=== PATIENT | male | born 1990 | race Caucasian/White ===

== ENCOUNTER 2017-03-23 20:07 | Emergency (ER) | payer SELFPAY ==
[2017-03-23 20:28] VITALS: BP 110/72; PULSE 77; TEMP 98.5; BMI 25.4
--- NOTE | 2017-03-23 20:32 | PDOC ---
Rapid Medical Evaluation Chief Complaint: Rash Time Seen by Provider: 03/23/17 20:19 Medical Evaluation: Allergies Allergy/AdvReac Type Severity Reaction Status Date / Time No Known Allergies Allergy Verified 03/23/17 20:21 Vital Signs Temp Pulse Resp BP Pulse Ox 98.5 F 77 20 110/72 03/23/17 20:21 03/23/17 20:21 03/23/17 20:21 03/23/17 20:21 03/23/17 20:30 Pt with c/o: itchy rash worsening since 3 am . had ppd placed 10 days ago Pt on brief exam: large wheals to body. oropharynx intact, no stridor / wheezing Pt ordered for: none Pt to proceed to the ED Discharge Disposition - Diagnosis Rash - Referrals - Patient Instructions - Post Discharge Activity
[2017-03-23] MEDS ORDERED: predniSONE 20 MG TABLET (UD) PO ONE (22:02)
--- NOTE | 2017-03-23 22:02 | PDOC ---
History of Present Illness - General Chief Complaint: Rash Stated Complaint: RASH Time Seen by Provider: 03/23/17 20:19 History Source: Patient Exam Limitations: No Limitations - History of Present Illness Initial Comments: 03/23/17 21:58 The 26-year-old male without significant past medical history of presents to emergency department today with generalized raised take wheels covering trunk and extending into arms and legs. Denies any change in medications, foods, soaps , shampoos, conditioner's, lotions, shaving creams, colognes, laundry detergent , fabric softener. He denies fevers, chills, shortness of breath, chest pain, nausea, vomiting, dizziness. Past History - Past Medical History Allergies/Adverse Reactions: Allergies Allergy/AdvReac Type Severity Reaction Status Date / Time No Known Allergies Allergy Verified 03/23/17 20:21 Home Medications: Ambulatory Orders No Home Medications 0 dose .ROUTE UTDICT 02/21/12 Prednisone [Deltasone -] 40 mg PO UTDICT #8 tablet 03/23/17 Anemia: No Asthma: No Cancer: No Cardiac Disorders: No - Surgical History Abdominal Surgery: No Appendectomy: No Cardiac Surgery: No Cholecystectomy: No - Immunization History Td Vaccination: (unknown) Immunization Up to Date: Yes - Suicide/Smoking/Psychosocial Hx Smoking Status: No Smoking History: Never smoked Years of Tobacco Use: 0 Number of Cigarettes Smoked Daily: 0 Cigars Per Day: 0 Information on smoking cessation initiated: No Hx Alcohol Use: No Drug/Substance Use Hx: No Substance Use Type: None Review of Systems - Review of Systems Able to Perform ROS?: Yes Is the patient limited Kyrgyz proficient: No Constitutional: No: Symptoms Reported HEENTM: No: Symptoms Reported Respiratory: No: Symptoms reported Cardiac (ROS): No: Symptoms Reported ABD/GI: No: Symptoms Reported : No: Symptoms Reported Musculoskeletal: No: Symptoms Reported Integumentary: Yes: See HPI Neurological: No: Symptoms reported *Physical Exam - Vital Signs Last Vital Signs Temp Pulse Resp BP Pulse Ox 98.5 F 77 20 110/72 03/23/17 20:21 03/23/17 20:21 03/23/17 20:21 03/23/17 20:21 - Physical Exam General Appearance: Yes: Appropriately Dressed. No: Apparent Distress Neck: negative: Stridor Respiratory/Chest: positive: Lungs Clear, Normal Breath Sounds. negative: Respiratory Distress, Accessory Muscle Use Cardiovascular: positive: Regular Rhythm, Regular Rate Integumentary: positive: Rash (raised pink rash to trunk) Neurologic: positive: Alert, Normal Response, Motor Strength 5/5 Medical Decision Making - Medical Decision Making 03/23/17 21:59 A/P: 26-year-old male with pancreas rash to trunk and upper extremities. Patient states rash is improving after taking Benadryl and hydrocortisone cream. Lungs clear to auscultation bilaterally. Respirations even and unlabored. No stridor noted. Prednisone 60 mg orally now Discharge *DC/Admit/Observation/Transfer Diagnosis at time of Disposition: Rash - Discharge Dispostion Disposition: HOME Condition at time of disposition: Stable Admit: No - Prescriptions Prescriptions: Prednisone [Deltasone -] 40 mg PO UTDICT #8 tablet - Referrals - Patient Instructions Additional Instructions: Take Benadryl 40 mg daily for the next 4 days. Use hydrocortisone cream 3 times a day to affected areas. Take Benadryl 25 mg every 6 hours as needed for itching. Return to emergency department for shortness of breath, difficulty breathing, change in voice, drooling or any other concerns. Thank you very much for choosing us to provide your emergent healthcare needs. - Post Discharge Activity
[2017-03-23] MEDS ORDERED: predniSONE 20 MG TABLET (UD) ONE (22:06)
== END 2017-03-23 22:32 | disposition home or self-care (01) ==
LOC: JERFT 20:07
DX: R21 Rash and other nonspecific skin eruption (principal)
CPT/HCPCS: 99281-25

== ENCOUNTER 2019-11-14 15:20 | Emergency (ER) | payer OTHER ==
[2019-11-14 15:25] VITALS: BP 127/70; PULSE 73; TEMP 98.3; BMI 26.4
--- NOTE | 2019-11-14 15:28 | PDOC ---
Rapid Medical Evaluation Chief Complaint: Injury Medical Evaluation: Allergies Allergy/AdvReac Type Severity Reaction Status Date / Time No Known Allergies Allergy Verified 11/14/19 15:22 11/14/19 15:24 29 yo M denies pmhx c/o L foot and ankle pain after jumping off fire truck (approx 3 feet from the ground) today. denies striking the ground, head injury, neck pain, cp, back pain or any other complaints. denies taking pain meds today. PE: wearing ankle top boots ambulating A/P: L foot and ankle pain L foot and ankle xray Discharge Disposition - Diagnosis Pain, joint, ankle and foot Qualifiers: Laterality: left Qualified Code(s): M25.572 - Pain in left ankle and joints of left foot - Discharge Dispostion Disposition: HOME - Referrals - Patient Instructions - Post Discharge Activity
[2019-11-14] MEDS ORDERED: IBUPROFEN 600 MG TABLET (FP) PO ONE ×2 (15:57→15:58)
--- NOTE | 2019-11-14 15:58 | PDOC ---
History of Present Illness - General Chief Complaint: Injury Stated Complaint: LT. LEG PAIN Time Seen by Provider: 11/14/19 15:27 History Source: Patient Exam Limitations: No Limitations - History of Present Illness Initial Comments: 11/14/19 15:56 Patient is a 29-year-old male who presents to the ED with left heel pain after jumping off a fire truck and landing awkwardly on his left heel. 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 He states that he has been walking on the foot but he has pain to his left heel. He denies any numbness or tingling. He denies any weakness. He denies hitting his head or any LOC. He has no past medical history or allergies to medications. Past History - Medical History Allergies/Adverse Reactions: Allergies Allergy/AdvReac Type Severity Reaction Status Date / Time No Known Allergies Allergy Verified 11/14/19 15:22 Home Medications: Ambulatory Orders No Home Medications 0 dose .ROUTE UTDICT 02/21/12 predniSONE [Deltasone -] 40 mg PO UTDICT #8 tablet 03/23/17 Anemia: No Asthma: No Cancer: No Cardiac Disorders: No - Surgical History Abdominal Surgery: No Appendectomy: No Cardiac Surgery: No Cholecystectomy: No - Immunization History Td Vaccination: (unknown) Immunization Up to Date: Yes - Psycho-Social/Smoking History Smoking Status: No Smoking History: Never smoked Years of Tobacco Use: 0 Number of Cigarettes Smoked Daily: 0 Cigars Per Day: 0 - Substance Abuse Hx (Audit-C & DAST Scrn) How often the patient has a drink containing alcohol: Monthly or less Score: In Men: 4 or > Positive; In Women: 3 or > Positive: 1 Screen Result (Pos requires Nsg. Audit-10AR): Negative In the last yr the pt used illegal drug/Rx for NonMed reason: No Score: Yes response is considered Positive: 0 Screen Result (Positive result requires Nsg. DAST-10): Negative Review of Systems - Review of Systems Comments:: 11/14/19 16:00 - Review of Systems Able to Perform ROS?: Yes Constitutional: No: Fever, Chills, Loss of Appetite, Night Sweats, Weakness HEENTM: No: Eye Pain, Vision changes, Ear Pain, Throat Pain, Throat Swelling, Mouth Pain, Difficulty Swallowing Respiratory: No: Cough, Shortness of Breath, Wheezing, Sputum Production Cardiac (ROS): No: Chest Pain, Chest Tightness, Palpitations, Irregular Heart Beat, Edema ABD/GI: No: Nausea, Vomiting, Abdominal Pain, Diarrhea : No Dysuria, No Hematuria, No Frequency, No Urgency Musculoskeletal: No: Muscle Pain, Back Pain, Joint Pain, Muscle Weakness, Neck Pain; positive: Left heel pain Integumentary: No: Lesions, Rash Neurological: No: Headache, Numbness, Tingling, Weakness, Speech Difficulties *Physical Exam - Vital Signs Last Vital Signs Temp Pulse Resp BP Pulse Ox 98.3 F 73 18 127/70 100 11/14/19 15:22 11/14/19 15:22 11/14/19 15:22 11/14/19 15:11/14/19 15:22 - Physical Exam 11/14/19 16:00 - Physical Exam General Appearance: Nourished, Appropriately Dressed, No Distress HEENT: EOMI, Normal Voice, No Pharyngeal Erythema, No Muffled/Hoarse voice, No Tonsillar Exudate, No Tonsillar Erythema, No Nasal Congestion, No Rhinorrhea, Hearing Grossly Normal, TMs Normal, No TM Bulging, No TM Dullness, No TM Erythema Neck: Supple, No Lymphadenopathy (R), No Lymphadenopathy (L), No Rigidity, No Decreased range of motion Respiratory/Chest: Lungs Clear, Normal Breath Sounds. No Respiratory Distress, No Accessory Muscle Use Cardiovascular: Regular Rhythm, Regular Rate, S1, S2 Gastrointestinal/Abdominal: Normal Bowel Sounds, Soft. Non-tender, No Guarding, No Rebound, No Rigidity Musculoskeletal: Normal Inspection. No Decreased Range of Motion; tenderness over the left heel to palpation. No Achilles step-off appreciated. Normal Schneider sign. Calf soft and supple. DP and PT pulses 2+. Patient able to move all toes freely. No tenderness over the distal fibula appreciated. No medial ankle tenderness to palpation. Brisk capillary refill distally Extremity: Normal Capillary Refill, Normal Inspection Integumentary: Normal Color, Dry. No Rash Neurologic: sales executive II-XII NML intact, Fully Oriented, Alert, Normal Mood/Affect, Normal Response Medical Decision Making - Medical Decision Making 11/14/19 16:01 Assessment: Patient is a 29-year-old male with left heel pain after jumping awkwardly off the fire truck earlier today. Plan: -Left ankle and foot x-rays negative for acute pathology read by radiology -Postop shoe ordered -Motrin given in the ED -Patient to follow-up with orthopedics for repeat evaluation. He understands and agrees with this treatment plan and he is stable for discharge. Discharge - Discharge Information Problems reviewed: Yes Clinical Impression/Diagnosis: Pain of left heel Pain, joint, ankle and foot Qualifiers: Laterality: left Qualified Code(s): M25.572 - Pain in left ankle and joints of left foot Condition: Stable Disposition: HOME - Follow up/Referral Referrals: Don Mesa MD [Staff Physician] - - Patient Discharge Instructions Patient Printed Discharge Instructions: DI for Contusion Additional Instructions: Ice and elevate your foot. Get plenty rest and drink plenty of fluids. Avoid any strenuous activity until you are no longer having any pain. Follow-up with orthopedics for repeat evaluation. Take Motrin or ibuprofen for pain. - Post Discharge Activity Work/Back to School Note: Back to Work
--- OUTSIDE RECORDS SUMMARY | 2019-11-14 17:17 | XMS ---
:1990 Author Organization [facility] Support Name Relationship Address Phone [facility] Unavailable [facility] [place] [address] [facility] [place] [phone] [employer] [address] [place] [phone] Re-disclosure Warning The records that you are about to access may contain information from federally- assisted alcohol or drug abuse programs. If such information is present, then the following federally mandated warning applies: This information has been disclosed to you from records protected by federal confidentiality rules (42 CFR part 2). The federal rules prohibit you from making any further disclosure of this information unless further disclosure is expressly permitted by the written consent of the person to whom it pertains or as otherwise permitted by 42 CFR part 2. A general authorization for the release of medical or other information is NOT sufficient for this purpose. The Federal rules restrict any use of the information to criminally investigate or prosecute any alcohol or drug abuse patient.The records that you are about to access may contain highly sensitive health information, the redisclosure of which is protected by Article 27-F of the [facility] Public Health law. If you continue you may haveaccess to information: Regarding HIV / AIDS; Provided by facilities licensed or operated by the [facility] Office of Mental Health; or Provided by the [facility] Office for People With Developmental Disabilities. If such information is present, then the following [facility] mandated warning applies: This information has been disclosed to you from confidential records which are protected by state law. State law prohibits you from making any further disclosure of this information without the specific written consent of the person to whom it pertains, or as otherwise permitted by law. Any unauthorized further disclosure in violation of state law may result in a fine or shelter sentence or both. A general authorization for the release of medical or other information is NOT sufficient authorization for further disclosure. Insurance Providers Payer name Policy type Policy ID Covered Covered democrat's Policy P minda / Coverage democrat ID relationship to Ramos Inf ormation type ramos [facility] Management [id number] [place] [id number] [employer] [id number] SP [id number] DEPT. [facility] [id number] SP [id number] [employer] DEPT PHY. Dental [employer] [id number] S [id number] Dental DHMO [employer] [id number] S [id number] [place] Medicaid [place] FFS [id number] S [id number] 2 Medicaid Medicaid [id number] S [id number] [employer] Dental [id number] S [id number] [employer] [place] [id number] S [id number] 1 [facility] Plan Classic Problems, Conditions, and Diagnoses Code Display Name Description Problem Type Effective Dates Data Source(s) R69 Illness, Illness, Diagnosis 04/26/2018 LORIN (Pat sam unspecified unspecified 10:10:14 AM BOUCHRA [facility])
== END 2019-11-14 16:10 | disposition home or self-care (01) ==
LOC: JERFT 15:20
DX: M25.572 Pain in left ankle and joints of left foot (principal)
CPT/HCPCS: 73610-TC-LT-FY; 73630-TC-LT; 99284-25

== ENCOUNTER 2023-08-02 21:18 | Emergency (ER) | payer BC, OTHER ==
[2023-08-02 21:27] VITALS: BP 129/75; PULSE 73; RESP 16; TEMP 98.9; BMI 26.4
[2023-08-02] MEDS ORDERED: DIPHTH,PERTUSS(ACELL),TET 0.5 ML DISP.SYRIN IM ONE (21:59)
[2023-08-02] MEDS: DIPHTH,PERTUSS(ACELL),TET 0.5 ML DISP.SYRIN IM ONE (22:07)
== END 2023-08-02 23:21 | disposition home or self-care (01) ==
LOC: FER 21:18
PROC: 0HQ1XZZ Repair Face Skin, External Approach (ICD-10-PCS; principal; 2023-08-02)
PROC: 3E0234Z Introduction of Serum, Toxoid and Vaccine into Muscle, Percutaneous Approach (ICD-10-PCS; 2023-08-02)
DX: S01.112A Laceration without foreign body of left eyelid and periocular area, initial encounter (principal); Z23 Encounter for immunization; W21.07XA Struck by softball, initial encounter
CPT/HCPCS: 70150-TC-FY; 70200-TC-FY; 90715; 99284-25

== ENCOUNTER 2024-07-11 09:01 | Emergency (ER) | payer OTHER ==
[2024-07-11 09:33] VITALS: BP 119/73; PULSE 66; RESP 20; TEMP 98.2; BMI 25.0
[2024-07-11] MEDS ORDERED: IBUPROFEN 600 MG TABLET (FP) PO ONE (10:00)
[2024-07-11] MEDS: IBUPROFEN 600 MG TABLET (FP) PO ONE (10:01)
[2024-07-11 11:40] LABS: HCV DIAGNOSTIC IN-HOUSE W/RFLX NON-REACTIVE (NONREACTIVE)
[2024-07-11 11:41] LABS: HIV INTERPRETATION NEGATIVE (NEGATIVE)
== END 2024-07-11 11:01 | disposition home or self-care (01) ==
LOC: JERFT 09:01
DX: S43.102A Unspecified dislocation of left acromioclavicular joint, initial encounter (principal); M25.522 Pain in left elbow; W17.89XA Other fall from one level to another, initial encounter; Y99.0 Civilian activity done for income or pay
CPT/HCPCS: 36415; 73030-TC-LT-FY; 73070-TC-LT-FY; 86803; 87389; 99284-25